=== PATIENT | male | born 1975 | race Caucasian/White ===

== ENCOUNTER 2017-08-10 10:20 | Emergency (ER) | payer MEDICAID, OTHER ==
[~2017-08-10] VITALS: Ht 175.3 cm; Wt 131.1 kg
[2017-08-10 12:07] VITALS: BP 132/85
== END 2017-08-10 12:07 | disposition home or self-care (01) ==
LOC: ED 10:20
DX: J20.9 Acute bronchitis, unspecified (principal); J45.909 Unspecified asthma, uncomplicated
CPT/HCPCS: 99406